=== PATIENT | male | born 1955 | race Caucasian/White ===

== ENCOUNTER 2016-09-27 15:41 | Emergency (ER) | payer BC ==
--- NOTE | 2016-09-27 16:15 | Emergency Department Record ---
History of Present Illness - General Chief complaint: Male Urogenital Problem Stated complaint: BLOOD IN URINE Time Seen by Provider: 09/27/16 15:49 Source: Patient, Family Mode of Arrival: Ambulatory Limitations: No limitations - History of Present Illness Initial comments: 61 yo male presents with hematuria intermittently since September 22. He has a history of prior renal cancer with a L nephrectomy in 2014. He has a history of PAD and takes Aspirin, Plavix and Xarelto. He was seen [facility] and started on Cipro 3 days ago. No retention. No fever. No pain with voiding. He does have mild RUQ pain that comes and goes. Dr Saldaña is his urologist. No nausea, vomiting, or chills. The symptoms had initially improved a a few voids where it returned to clear but today returned to dark blood. MD Complaint: Other Onset/Timin -: Days(s) (5) Radiation: RUQ (mild comes and goes) Severity: Moderate Severity scale (1-10): 4 Quality: Aching, Dull Consistency: Constant Reports: Blood in urine, Urinary retention - Related Data Home Medications Medication Instructions Recorded Confirmed Last Taken Aspirin 81 mg PO Q4-6HR tab 09/24/16 09/27/16 09/27/16 Atorvastatin Calcium 1 tab PO DAILY 90 Days 09/24/16 09/27/16 09/27/16 Clopidogrel Bisulfate [Clopidogrel] 1 tab PO DAILY 90 Days 09/24/16 09/27/1609/08 Rivaroxaban [Xarelto] 1 tab PO DAILY 90 Days 09/24/16 09/27/16 09/27/16 Tamsulosin HCl 1 tab PO DAILY 90 Days 09/24/16 09/27/16 09/27/16 Allergies Allergy/AdvReac Type Severity Reaction Status Date / Time No Known Drug Allergies Allergy Unverified 09/24/16 16:07 Travel Screening - Travel/Exposure Within Last 30 Days Have you traveled within the last 30 days?: No - Travel/Exposure Within Last Year Have you traveled outside the [place] in the last year?: No - Additonal Travel Details Have you been exposed to anyone with a communicable illness?: No Review of Systems Constitutional: Denies: Chills, Fever, Weakness Eyes: Denies: Eye discharge ENT: Denies: Congestion, Throat pain Respiratory: Denies: Cough, Dyspnea, Hemoptysis, Stridor, Wheezes Cardiovascular: Denies: Chest pain, Palpitations, Syncope Endocrine: Denies: Fatigue, Polydipsia, Polyuria Gastrointestinal: Reports: Abdominal pain (mild RUQ, comes and goes). Denies: Diarrhea, Nausea, Vomiting Genitourinary: Reports: Hematuria Musculoskeletal: Denies: Arthralgia, Back pain, Joint swelling, Myalgia Skin: Denies: Bruising, Change in color, Rash Neurological: Denies: Headache, Numbness Psychiatric: Denies: Anxiety Hematological/Lymphatic: Reports: Blood Clots (PAD). Denies: Easy bleeding, Easy bruising, Swollen glands Past Medical History - SOCIAL HISTORY Smoking Status: Current some day smoker Alcohol Use: None Drug Use: None - RESPIRATORY Hx Respiratory Disorders: No - CARDIOVASCULAR Hx Cardio Disorders: Yes Hx Vascular Disease: Yes - NEURO Hx Neuro Disorders: No - GI Hx GI Disorders: No - Hx Genitourinary Disorders: Yes Hx Renal Disease: Yes (Left kidney cancer) - MUSCULOSKELETAL Hx Musculoskeletal Disorders: No - PSYCH Hx Psych Problems: No - HEMATOLOGY/ONCOLOGY Hx Hematology/Oncology Disorders: Yes Hx Anemia: Yes Hx Cancer: Yes (Leukemia and kidney cancer) Hx Chemotherapy: Yes Family Medical History Any Significant Family History?: No Physical Exam - General General Appearance: Alert, Oriented x3, Cooperative, No acute distress Limitations: No limitations - Head Head exam: Normal inspection - Eye Eye exam: Normal appearance - ENT ENT exam: Normal exam Ear exam: Normal external inspection Nasal Exam: Normal inspection Mouth exam: Normal external inspection - Neck Neck exam: Normal inspection - Respiratory Respiratory exam: Normal lung sounds bilaterally. negative: Respiratory distress - Cardiovascular Cardiovascular Exam: Regular rate, Normal rhythm, Normal heart sounds - GI/Abdominal GI/Abdominal exam: Soft. negative: Distended, Guarding, Rebound, Tenderness - Rectal Rectal exam: Deferred - exam: Deferred - Extremities Extremities exam: Normal inspection, Full ROM, Normal capillary refill. negative: Tenderness - Back Back exam: Reports: Normal inspection, Full ROM. Denies: Muscle spasm, Rash noted, Tenderness - Neurological Neurological exam: Alert, Normal gait, Oriented X3 - Psychiatric Psychiatric exam: Normal affect, Normal mood - Skin Skin exam: Dry, Intact, Normal color, Warm Course Vital Signs 09/27/16 15:44 Temperature 98.2 F Pulse Rate 84 Respiratory 18 Rate Blood Pressure 152/93 Pulse Ox 98 - Reevaluation(s) Reevaluation #1: UA, labs and CT ordered Pt has gross hematuria but no retention 09/27/16 16:16 Reevaluation #2: The labs were reviewed Hgb is 14 WBC is 12 UA is Large Blood, no N or LE, No WBC's CR is 1.3 with GFR of 59. 09/27/16 16:38 Reevaluation #3: The CT scan was reviewed No acute process, no stone, no hydro, no acute bladder abnormality Dr Saldaña Paged 09/27/16 16:49 Reevaluation #4: I SW Dr Saldaña He is familiar with the patient The patient underwent full work up with CT's this year and cystoscopy with no signs of cancer He recommended holding his blood thinners and increasing hydration. He is to call the office for follow up 09/27/16 17:04 Medical Decision Making - Lab Data Result diagrams: 09/27/16 16:13 09/27/16 16:13 Disposition Disposition: Discharge Clinical Impression: Hematuria Disposition: Home, Self-Care Condition: (1) Good Instructions: Hematuria (ED) Additional Instructions: Drink plenty of water and stay well hydrated Call Dr Saldaña's office tomorrow to schedule close follow up If you are unable to void, fever, pain or any new concerns go to an ER to be seen Hold today's medications then resume tomorrow if clearing. If not call your doctors tomorrow. Forms: Patient Portal Access Time of Disposition: 17:12
[2016-09-27 16:26] LABS: EOS % 2.5 % (0-6); GRAN % 56.8 % (47-80); HEMATOCRIT 42.2 % (42.0-52.0); LYMPH % 30.7 % (16-45); MEAN CELL VOLUME 98.1 fl (81-97); MEAN CORPUSCULAR HGB CONC 33.2 g/dl (32-36); MEAN PLATELET VOLUME 8.8 fl (7.4-10.4); PLATELET COUNT 248 K/uL (130-400); RED CELL DISTRIBUTION WIDTH 13.8 % (11.5-14.5); URINE APPEARANCE TURBID; URINE BILIRUBIN NEGATIVE (NEGATIVE); URINE BLOOD LARGE (NEGATIVE); URINE COLOR RED; URINE GLUCOSE (UA) NEGATIVE (NEGATIVE); URINE KETONE NEGATIVE (NEGATIVE); URINE LEUKOCYTE ESTERASE NEGATIVE (NEGATIVE); URINE NITRITE NEGATIVE (NEGATIVE); URINE UROBILINOGEN 0.2 E.U./dL (0.20 - 1.00); WHITE BLOOD COUNT W/O DIFF 12.4 K/uL (4.2-12.2)
[2016-09-27 16:27] LABS: MEAN CORPUSCULAR HEMOGLOBIN 32.5 pg (27-33)
[2016-09-27 16:28] LABS: URINE EPITHELIAL CELLS NONE SEEN (FEW); URINE PROTEIN 300 mg/dL (NEGATIVE); URINE WBC NONE SEEN (0-2/hpf)
[2016-09-27 16:34] LABS: ALB/GLOB RATIO 1.5 (1.1-1.8); ALBUMIN 4.6 gm/dL (3.5-5.0); ANION GAP 11.3 (7-16); BILIRUBIN,TOTAL 1.19 mg/dL (0.2-1.3); CARBON DIOXIDE 23.7 mmol/L (22-30); CREATININE 1.3 mg/dL (0.66-1.25); TOTAL PROTEIN 7.7 gm/dL (6.3-8.2)
[2016-09-27 16:36] LABS: INR 1.04; PARTIAL THROMBOPLASTIN TIME 28.5 SECONDS (24.5-39.1); PROTHROMBIN TIME (PATIENT) 11.8 SECONDS (9.5-12.1)
--- NOTE | 2016-09-28 08:21 | CT SCAN REPORT ---
EXAM: CT OF THE ABDOMEN AND PELVIS HISTORY: RIGHT SIDED ABDOMINAL PAIN, HEMATURIA. TECHNIQUE: CT of the abdomen and pelvis was performed without intravenous or oral contrast. Comparison: CT of the chest, abdomen and pelvis 01/28/15. FINDINGS: The lung bases are unremarkable. The liver and spleen are unremarkable. No pancreatic mass or inflammatory change. The bile ducts are not dilated. No calcified gallstones. No adrenal lesion seen. There has been a left nephrectomy. No right renal calculus or right ureteral calculus. There are two low density lesions in the right kidney most likely representing cysts. The one in the superior pole of the right kidney measures 2.1 cm in size and the one in the mid lateral right kidney measures 6 mm in size. The renal parenchyma is not optimally assessed, however , without contrast. There is no aortic aneurysm. No periaortic mass or adenopathy. There are atherosclerotic changes in the abdominal aorta. No mass in the left renal fossa. Postoperative vascular changes are present in the common femoral regions bilaterally. The appendix is unremarkable. No evidence for appendicitis. Arthritic changes are seen in the lower lumbar spine and sacroiliac joints. There are no dilated bowel loops. No free air or free fluid. The prostate is enlarged. There are sclerotic changes in the anterior superior aspect of the proximal right femur unchanged. This could represent avascular necrosis. This is similar to the patient's previous examination. IMPRESSION: 1. NO ACUTE ABDOMINAL OR PELVIC PROCESS IDENTIFIED. NO RENAL OR URETERAL CALCULI ARE SEEN. NO EVIDENCE FOR APPENDICITIS. 2. SURGICAL ABSENCE OF THE LEFT KIDNEY. NO RESIDUAL OR RECURRENT MASS IN THE LEFT FOSSA. 3. RIGHT RENAL CYSTS. 4. PROSTATIC ENLARGEMENT. 5. POSSIBLE AVASCULAR NECROSIS IN THE RIGHT HIP SIMILAR TO THE PREVIOUS STUDY. ARTHRITIC CHANGES IN THE LOWER LUMBAR SPINE AND SACROILIAC JOINTS. JOB NUMBER: [id number] [facility]
== END 2016-09-27 17:21 | disposition home or self-care (01) ==
LOC: ER 15:41 → MEDSURG 16:52 → UNDOADMIN 16:52 → ER 17:21
DX: R31.0 Gross hematuria (principal); R10.11 Right upper quadrant pain; Z85.53 Personal history of malignant neoplasm of renal pelvis
CPT/HCPCS: 74176; 80053; 81001; 85025; 85610; 85730; 99283; 99284

== ENCOUNTER 2017-04-17 12:59 | Emergency (ER) | payer BC ==
[2017-04-17] MEDS: 0.9 % SODIUM CHLORIDE 1,000 ML BAG IV ONE (14:06)
[2017-04-17] MEDS: ONDANSETRON HCL IV 4 MG/2 ML VIAL IV ONE (14:06)
[2017-04-17] MEDS: HYDROMORPHONE HCL 1 MG/ML SYRINGE IVP ONE (14:07)
[2017-04-17 14:08] LABS: URINE APPEARANCE CLEAR; URINE BILIRUBIN NEGATIVE (NEGATIVE); URINE BLOOD TRACE-I (NEGATIVE); URINE COLOR YELLOW; URINE GLUCOSE (UA) NEGATIVE (NEGATIVE); URINE KETONE NEGATIVE (NEGATIVE); URINE LEUKOCYTE ESTERASE NEGATIVE (NEGATIVE); URINE NITRITE NEGATIVE (NEGATIVE); URINE PROTEIN NEGATIVE (NEGATIVE); URINE UROBILINOGEN 0.2 E.U./dL (0.20 - 1.00)
[2017-04-17 14:18] LABS: BLOOD UREA NITROGEN 18 mg/dL (8-23); CREATININE 1.2 mg/dL (0.7-1.2); EST GLOMERULAR FILTRATION RATE > 60 mL/min
[2017-04-17 14:19] LABS: URINE AMORPHOUS SEDIMENT FEW; URINE EPITHELIAL CELLS NONE SEEN (FEW); URINE WBC NONE SEEN (0-2/hpf)
[2017-04-17 14:19] LABS: TOTAL PROTEIN 8.1 g/dL (6.6-8.7)
[2017-04-17 14:21] LABS: GLUCOSE,RANDOM 86 mg/dL (74-109)
[2017-04-17 14:23] LABS: ALT/SGPT 20 U/L (<41)
[2017-04-17 14:24] LABS: ALBUMIN 4.8 g/dL (4.0-5.0); ALKALINE PHOSPHATASE 168 U/L (40-129); AST/SGOT 17 U/L (10.0-50.0); LIPASE 37 U/L (13-60)
[2017-04-17 14:25] LABS: BILIRUBIN,DIRECT < 0.2 mg/dL (0-0.3)
--- NOTE | 2017-04-17 14:44 | Emergency Department Record ---
History of Present Illness - General Chief Complaint: Abdominal Pain Stated Complaint: RT SIDE/ABDOMINAL PAIN Time Seen by Provider: 04/17/17 13:41 Source: Patient Mode of Arrival: Ambulatory Limitations: No limitations - History of Present Illness Initial Comments: pt has had r sided abd pain and flank liban for 2 days which has grown progressively worse. pt has no n/v/c/d. nothin makes pain better or worse. pt had a l nephrectomy dur to renal cell carcinoma. Onset/Timin -: Days(s) Location: R Flank, RUQ, RLQ Severity: Moderate Quality: Burning Consistency: Constant Improves With: Nothing Worsens With: Nothing - Related Data Home Medications Medication Instructions Recorded Confirmed Last Taken Doxycycline Hyclate [Doxycycline] 100 mg PO BID 04/17/17 04/17/17 04/17/17 Previous Rx's Medication Instructions Recorded Hydrocodone/Acetaminophen [[place] 1 each PO QID #7 tablet 04/17/17 5-325 Tablet] Allergies Allergy/AdvReac Type Severity Reaction Status Date / Time No Known Drug Allergies Allergy Verified 04/17/17 13:32 Travel Screening - Travel/Exposure Within Last 30 Days Have you traveled within the last 30 days?: No - Travel/Exposure Within Last Year Have you traveled outside the [place] in the last year?: No - Additonal Travel Details Have you been exposed to anyone with a communicable illness?: No - Travel Symptoms Symptom Screening: None Review of Systems Reviewed: No additional complaints except as noted below Constitutional: Reports: As per HPI. Denies: Chills, Fever, Malaise, Night sweats, Weakness, Weight change Eyes: Reports: As per HPI. Denies: Eye discharge, Eye pain, Photophobia, Vision change ENT: Reports: As per HPI. Denies: Congestion, Dental pain, Ear pain, Epistaxis , Hearing loss, Throat pain Respiratory: Reports: As per HPI. Denies: Cough, Dyspnea, Hemoptysis, Stridor, Wheezes Cardiovascular: Reports: As per HPI. Denies: Arrhythmia, Chest pain, Dyspnea on exertion, Edema, Murmurs, Orthopnea, Palpitations, Paroxysmal nocturnal dyspnea, Rheumatic Fever, Syncope Endocrine: Reports: As per HPI. Denies: Fatigue, Heat or cold intolerance, Polydipsia, Polyuria Gastrointestinal: Reports: As per HPI, Abdominal pain. Denies: Constipation, Diarrhea, Hematemesis, Hematochezia, Melena, Nausea, Vomiting Genitourinary: Reports: As per HPI. Denies: Dysuria, Frequency, Hematuria, Incontinence, Retention, Testicular pain, Testicular mass, Urgency Musculoskeletal: Reports: As per HPI. Denies: Arthralgia, Back pain, Gout, Joint swelling, Myalgia, Neck pain Skin: Reports: As per HPI. Denies: Bruising, Change in color, Change in hair/ nails, Lesions, Pruritus, Rash Neurological: Reports: As per HPI. Denies: Abnormal gait, Confusion, Headache, Numbness, Paresthesias, Seizure, Tingling, Tremors, Vertigo, Weakness Psychiatric: Reports: As per HPI. Denies: Anxiety, Auditory hallucinations, Depression, Homicidal thoughts, Suicidal thoughts, Visual hallucinations Hematological/Lymphatic: Reports: As per HPI. Denies: Anemia, Blood Clots, Easy bleeding, Easy bruising, Swollen glands Past Medical History - SOCIAL HISTORY Smoking Status: Current some day smoker Alcohol Use: None Drug Use: None - RESPIRATORY Hx Respiratory Disorders: No - CARDIOVASCULAR Hx Cardio Disorders: Yes Hx Vascular Disease: Yes - NEURO Hx Neuro Disorders: No - GI Hx GI Disorders: No - Hx Genitourinary Disorders: Yes Hx Renal Disease: Yes (Left kidney cancer) - MUSCULOSKELETAL Hx Musculoskeletal Disorders: No - PSYCH Hx Psych Problems: No - HEMATOLOGY/ONCOLOGY Hx Hematology/Oncology Disorders: Yes Hx Anemia: Yes Hx Cancer: Yes (Leukemia and kidney cancer) Hx Chemotherapy: Yes Family Medical History Any Significant Family History?: Yes Physical Exam - General General Appearance: Alert, Oriented x3, Cooperative, Mild distress - Head Head exam: Normal inspection - Eye Eye exam: Normal appearance, PERRL, EOMI Pupils: Normal accommodation - ENT ENT exam: Normal exam, Mucous membranes moist, Normal external ear exam, Normal orophraynx, TM's normal bilaterally Ear exam: Normal external inspection. negative: External canal tenderness Nasal Exam: Normal inspection. negative: Discharge, Sinus tenderness Mouth exam: Normal external inspection, Tongue normal Teeth exam: Normal inspection. negative: Dental caries Throat exam: Normal inspection. negative: Tonsillar erythema, Tonsillar exudate - Neck Neck exam: Normal inspection, Full ROM. negative: Tenderness - Respiratory Respiratory exam: Normal lung sounds bilaterally. negative: Respiratory distress - Cardiovascular Cardiovascular Exam: Regular rate, Normal rhythm, Normal heart sounds - GI/Abdominal GI/Abdominal exam: Soft, Normal bowel sounds, Tenderness - Rectal Rectal exam: Deferred - exam: Deferred - Extremities Extremities exam: Normal inspection, Full ROM, Normal capillary refill. negative: Tenderness - Back Back exam: Reports: Normal inspection, CVA tenderness (R), Full ROM. Denies: Muscle spasm, Rash noted, Tenderness - Neurological Neurological exam: Alert, Normal gait, Oriented X3, Reflexes normal - Psychiatric Psychiatric exam: Normal affect, Normal mood - Skin Skin exam: Dry, Intact, Normal color, Warm Medical Decision Making - Lab Data Result diagrams: 04/17/17 13:45 04/17/17 13:45 Lab Results 04/17/17 04/17/17 Range/Units 13:45 14:00 Sodium 141 (136-145) mmol/L Potassium 4.3 (3.4-4.5) mmol/L Chloride 101 (98-107) mmol/L Carbon Dioxide 24.0 (22-29) mmol/L Anion Gap 16.0 (7-16) BUN 18 (8-23) mg/dL Creatinine 1.2 (0.7-1.2) mg/dL Estimated GFR > 60 mL/min Random Glucose 86 (74-109) mg/dL Calcium 9.5 (8.8-10.2) mg/dL Total Bilirubin 0.70 (0.2-1.0) mg/dL Direct Bilirubin < 0.2 (0-0.3) mg/dL AST 17 (10.0-50.0) U/L ALT 20 (<41) U/L Alkaline Phosphatase 168 H (40-129) U/L Total Protein 8.1 (6.6-8.7) g/dL Albumin 4.8 (4.0-5.0) g/dL Lipase 37 (13-60) U/L Urine Color Yellow Urine Appearance Clear Urine pH 6.0 (5.0-8.0) Ur Specific [place] 1.025 (1.002-1.030) Urine Protein Negative (NEGATIVE) Urine Glucose (UA) Negative (NEGATIVE) Urine Ketones Negative (NEGATIVE) Urine Blood Trace-i (NEGATIVE) Urine Nitrite Negative (NEGATIVE) Urine Bilirubin Negative (NEGATIVE) Urine Urobilinogen 0.2 (0.20 - 1.00) E.U./dL Ur Leukocyte Esterase Negative (NEGATIVE) Urine RBC 7 - 10 (NONE SEEN) Urine WBC None seen (0-2/hpf) Ur Epithelial Cells None seen (FEW) Amorphous Sediment Few Disposition Disposition: Discharge Clinical Impression: Abdominal pain Qualifiers: Abdominal location: right upper quadrant Qualified Code(s): R10.11 - Right upper quadrant pain Disposition: Home, Self-Care Condition: (1) Good Instructions: Abdominal Pain (ED) Additional Instructions: follow up with family doctor. return sooner if worse. Prescriptions: Hydrocodone/Acetaminophen [[place] 5-325 Tablet] 1 each PO QID #7 tablet Forms: Patient Portal Access Quality - Quality Measures Quality Measures: N/A - Blood Pressure Screening Does Patient Have Any of the Following: No Blood Pressure Classification: Pre-Hypertensive BP Reading Systolic Measurement: 150 Diastolic Measurement: 85 Screening for High Blood Pressure: < Pre-Hypertensive BP, F/U Documented > [ [id number]] Pre-Hypertensive Follow-up Interventions: Follow-up with rescreen every year.
[2017-04-17 14:59] LABS: HEMATOCRIT 49.6 % (42.0-52.0); HEMOGLOBIN 16.4 gm/dl (14.0-18.0); MEAN CELL VOLUME 96.9 fl (81-97); MEAN CORPUSCULAR HGB CONC 33.1 g/dl (32-36); MEAN PLATELET VOLUME 8.6 fl (7.4-10.4); PLATELET COUNT 292 K/uL (130-400); RED BLOOD COUNT 5.12 M/uL (4.40-5.70); RED CELL DISTRIBUTION WIDTH 13.9 % (11.5-14.5); WHITE BLOOD COUNT W/O DIFF 13.3 K/uL (4.2-12.2)
[2017-04-17 15:00] LABS: PLATELET ESTIMATE NORMAL (NORMAL)
--- NOTE | 2017-04-18 13:51 | CT SCAN REPORT ---
EXAM: CT OF THE ABDOMEN AND PELVIS WITHOUT CONTRAST HISTORY: RIGHT FLANK PAIN FOR TWO DAYS. PRIOR LEFT NEPHRECTOMY FOR MALIGNANCY. TECHNIQUE: Axial CT scan of the abdomen and pelvis was performed without oral or IV contrast. Comparison: CT of the abdomen and pelvis 09/27/16. FINDINGS: The patient is again seen to be postop left nephrectomy. No recurrent soft tissue mass identified in the left renal fossa. No intrarenal calculi or hydronephrosis identified on the right. No hydroureter is seen as well with no definite right ureteral calculus evident and no bladder calculus evident. The prostate again appears enlarged, measuring about 5.9 cm in transverse x 5.1 cm in AP diameter and extends well up into the floor of the bladder. Correlation with serum PSA and physical exam suggested. Two low attenuation masses are again seen in the right kidney appearing unchanged from before where the upper pole low attenuation mass again measuring about 2.2 cm in size and the smaller exophytic low attenuation mass arising from the mid portion of the right kidney again only about 6.5 mm in size. These are incompletely evaluated without IV contrast although presumably represent cysts. Evaluation of the bowel and viscera is quite limited without oral or IV contrast. Given this limitation, no definite hepatic, splenic, adrenal, or pancreatic mass identified. There are probably bilateral femoral arterial grafts partially seen in the lower most scans also present previously. The appendix is visualized and appears negative. No free intraperitoneal air or free intraperitoneal fluid evident. Degenerative disk disease at the L4-L5 interspace. Associated foraminal stenosis at this level. Note is made of sclerosis in the right femoral head similar to before. This may be related to avascular necrosis. IMPRESSION: 1. POSTOP LEFT NEPHRECTOMY. 2. NO URINARY TRACT CALCULI OR HYDRONEPHROSIS EVIDENT ON THE RIGHT. 3. ENLARGED PROSTATE. 4. A COUPLE LOW ATTENUATION MASSES RIGHT KIDNEY UNCHANGED FROM BEFORE, PRESUMABLY CYSTS. 5. DEGENERATIVE CHANGE IN THE SPINE. CHANGES IN THE RIGHT FEMORAL HEAD BEFORE WHICH MAY REPRESENT AVASCULAR NECROSIS. JOB NUMBER: [id number] [facility]
--- NOTE | 2017-04-18 15:09 | ULTRASOUND REPORT ---
EXAM: ABDOMEN ULTRASOUND HISTORY: RIGHT UPPER QUADRANT ABDOMINAL PAIN FOR THE PAST TWO DAYS. PREVIOUS LEFT NEPHRECTOMY. TECHNIQUE: Sonographic evaluation of the abdomen was performed in the standard fashion. Comparison: Previous CT scan of the abdomen and pelvis dated 04/17/17. FINDINGS: The liver demonstrates increased echogenicity consistent with fatty infiltration. There are no focal hepatic abnormalities. The gallbladder is unremarkable with no stones, wall thickening, or pericholecystic fluid. The common bile duct is normal measuring 5 mm. The pancreas is faintly visualized and appears normal. The proximal aorta is partially obscured by intraabdominal gas. The distal aorta is normal in caliber. The spleen and IVC are normal. A 2.4 cm cyst is present at the upper pole of the right kidney. The right kidney measures 12.6 cm in length. There is no hydronephrosis or visible calculus. The left kidney is surgically absent. The renal fossa appears normal. There is no ascites. IMPRESSION: 1. NO ACUTE INTRAABDOMINAL PATHOLOGY. THE GALLBLADDER AND BILIARY TREE ARE NORMAL. 2. STATUS POST LEFT NEPHRECTOMY. 3. 2.4 CM RIGHT RENAL CYST. J[facility]BER: [id number] [facility]
== END 2017-04-17 18:01 | disposition home or self-care (01) ==
LOC: ER 12:59
DX: R10.11 Right upper quadrant pain (principal); Z85.528 Personal history of other malignant neoplasm of kidney
CPT/HCPCS: 99284 ×2; 96374; 96375; 83690; 80076; 80048; 81001; 85027; 76700; 74176; J2405; J1170; J7030

== ENCOUNTER 2017-09-15 12:23 | Emergency (ER) | payer BC ==
--- NOTE | 2017-09-15 12:33 | Emergency Department Record ---
History of Present Illness - General Chief complaint: Male Urogenital Problem Stated complaint: BLOOD IN URINE Time Seen by Provider: 09/15/17 12:27 Source: Patient, RN notes reviewed - History of Present Illness Initial comments: patient had a turp done saturday and has a rivers and this am he noticed blood in his urine and no abdominal pain. No sign of urinary obstriuction. He is on xarelto for DVT's and PAD with stents in both legs and they were 2 years ago and he is also on aspirin and told to stop aspirin and accidentally gave him aspirin today or yesterday. He is also on plavix. Dr. Saldaña is his urologist. The talked to the production service manager and he sent him to the ED. patient also complains of constipation and using colace twice a day. - Related Data Home Medications Medication Instructions Recorded Confirmed Last Taken Ciprofloxacin HCl [Cipro] 500 mg PO Q12HR 09/15/17 09/15/17 09/15/17 Docusate Sodium [Colace] 100 mg PO DAILY 09/15/17 09/15/17 09/15/17 Previous Rx's Medication Instructions Recorded Hydrocodone/Acetaminophen [[place] 1 each PO QID #7 tablet 04/17/17 5-325 Tablet] Allergies Allergy/AdvReac Type Severity Reaction Status Date / Time No Known Drug Allergies Allergy Verified 09/15/17 12:52 Review of Systems Reviewed: No additional complaints except as noted below Constitutional: Reports: As per HPI. Denies: Chills, Fever, Malaise, Night sweats, Weakness, Weight change Eyes: Reports: As per HPI. Denies: Eye discharge, Eye pain, Photophobia, Vision change ENT: Reports: As per HPI. Denies: Congestion, Dental pain, Ear pain, Epistaxis , Hearing loss, Throat pain Respiratory: Reports: As per HPI. Denies: Cough, Dyspnea, Hemoptysis, Stridor, Wheezes Cardiovascular: Reports: As per HPI. Denies: Arrhythmia, Chest pain, Dyspnea on exertion, Edema, Murmurs, Orthopnea, Palpitations, Paroxysmal nocturnal dyspnea, Rheumatic Fever, Syncope Endocrine: Reports: As per HPI. Denies: Fatigue, Heat or cold intolerance, Polydipsia, Polyuria Gastrointestinal: Reports: As per HPI. Denies: Abdominal pain, Constipation, Diarrhea, Hematemesis, Hematochezia, Melena, Nausea, Vomiting Genitourinary: Reports: As per HPI, Hematuria. Denies: Dysuria, Frequency, Incontinence, Retention, Testicular pain, Testicular mass, Urgency Musculoskeletal: Reports: As per HPI. Denies: Arthralgia, Back pain, Gout, Joint swelling, Myalgia, Neck pain Skin: Reports: As per HPI. Denies: Bruising, Change in color, Change in hair/ nails, Lesions, Pruritus, Rash Neurological: Reports: As per HPI. Denies: Abnormal gait, Confusion, Headache, Numbness, Paresthesias, Seizure, Tingling, Tremors, Vertigo, Weakness Psychiatric: Reports: As per HPI. Denies: Anxiety, Auditory hallucinations, Depression, Homicidal thoughts, Suicidal thoughts, Visual hallucinations Hematological/Lymphatic: Reports: As per HPI. Denies: Anemia, Blood Clots, Easy bleeding, Easy bruising, Swollen glands Past Medical History - SOCIAL HISTORY Smoking Status: Current some day smoker Drug Use: None - RESPIRATORY Hx Respiratory Disorders: No - CARDIOVASCULAR Hx Cardio Disorders: Yes Hx Vascular Disease: Yes - NEURO Hx Neuro Disorders: No - GI Hx GI Disorders: No - Hx Genitourinary Disorders: Yes Hx Renal Disease: Yes (Left kidney cancer) - MUSCULOSKELETAL Hx Musculoskeletal Disorders: No - PSYCH Hx Psych Problems: No - HEMATOLOGY/ONCOLOGY Hx Hematology/Oncology Disorders: Yes Hx Anemia: Yes Hx Cancer: Yes (Leukemia and kidney cancer) Hx Chemotherapy: Yes Physical Exam - General General Appearance: Alert, Oriented x3, Cooperative, No acute distress - Head Head exam: Normal inspection - Eye Eye exam: Normal appearance, PERRL Pupils: Normal accommodation - ENT ENT exam: Normal exam, Mucous membranes moist, Normal external ear exam, Normal orophraynx, TM's normal bilaterally Ear exam: Normal external inspection. negative: External canal tenderness Nasal Exam: Normal inspection. negative: Discharge, Sinus tenderness Mouth exam: Normal external inspection, Tongue normal Teeth exam: Normal inspection. negative: Dental caries Throat exam: Normal inspection. negative: Tonsillar erythema, Tonsillar exudate - Neck Neck exam: Normal inspection, Full ROM. negative: Tenderness - Respiratory Respiratory exam: Normal lung sounds bilaterally. negative: Respiratory distress - Cardiovascular Cardiovascular Exam: Regular rate, Normal rhythm, Normal heart sounds - GI/Abdominal GI/Abdominal exam: Soft, Normal bowel sounds. negative: Tenderness - Rectal Rectal exam: Deferred - exam: Deferred - Extremities Extremities exam: Normal inspection, Full ROM, Normal capillary refill. negative: Tenderness - Back Back exam: Reports: Normal inspection, Full ROM. Denies: Muscle spasm, Rash noted, Tenderness - Neurological Neurological exam: Alert, Normal gait, Oriented X3, Reflexes normal - Psychiatric Psychiatric exam: Normal affect, Normal mood - Skin Skin exam: Dry, Intact, Normal color, Warm Course - Reevaluation(s) Reevaluation #1: Dr. Vyas production service manager and paged him [phone] option 2. 09/15/17 13:20 Medical Decision Making - Data Complexity MDM Data: Labs Ordered and/or Reviewed (hg 16.1) - Lab Data Result diagrams: 09/15/17 12:48 09/15/17 12:48 Disposition Clinical Impression: Hematuria Qualifiers: Hematuria type: gross Qualified Code(s): R31.0 - Gross hematuria Post surgical complication Qualifiers: Surgical complication system/body Area: genitourinary Surgical complication type: hemorrhage Procedure type: genitourinary Qualified Code(s): N99.820 - Postprocedural hemorrhage of a genitourinary system organ or structure following a genitourinary system procedure Disposition: Home, Self-Care Condition: (1) Good Instructions: Hematuria (ED) Additional Instructions: drink lots of fluid stop asapirin and plavix and xarelto for 2 days than only restart xarelto and plavix call Dr. Saldaña's office timorrow for a urgent follow up with gross hematuria Use milk of magnesia two tablespoons every 8 hours Forms: Patient Portal Access Time of Disposition: 13:23 Quality - Quality Measures Quality Measures: N/A - Blood Pressure Screening Does Patient Have Any of the Following: No Blood Pressure Classification: Hypertensive Reading Systolic Measurement: 150 Diastolic Measurement: 78 Screening for High Blood Pressure: < First Hypertensive BP, F/U Documented > [ G8950] First Hypertensive Follow-up Interventions: Referral to alternative/primary care provider.
[2017-09-15 12:52] LABS: BASO % 0.7 % (0-6); EOS % 1.5 % (0-6); GRAN % 68.7 % (47-80); HEMATOCRIT 48.9 % (42.0-52.0); HEMOGLOBIN 16.1 gm/dl (14.0-18.0); LYMPH % 19.1 % (16-45); MEAN CELL VOLUME 99.2 fl (81-97); MEAN CORPUSCULAR HEMOGLOBIN 32.7 pg (27-33); MEAN CORPUSCULAR HGB CONC 32.9 g/dl (32-36); MEAN PLATELET VOLUME 8.8 fl (7.4-10.4); PLATELET COUNT 204 K/uL (130-400); RED BLOOD COUNT 4.93 M/uL (4.40-5.70); WHITE BLOOD COUNT W/O DIFF 12.2 K/uL (4.2-12.2)
[2017-09-15 12:56] LABS: URINE APPEARANCE CLOUDY; URINE BILIRUBIN SMALL (NEGATIVE); URINE COLOR RED; URINE KETONE 15 mg/dL (NEGATIVE); URINE LEUKOCYTE ESTERASE MODERATE (NEGATIVE)
[2017-09-15 12:58] LABS: URINE BLOOD LARGE (NEGATIVE); URINE NITRITE POSITIVE (NEGATIVE); URINE PROTEIN 300 mg/dL (NEGATIVE)
[2017-09-15 12:59] LABS: URINE BACTERIA NONE SEEN; URINE EPITHELIAL CELLS NONE SEEN (FEW); URINE WBC 0 - 2 (0-2/hpf)
[2017-09-15 13:01] LABS: BLOOD UREA NITROGEN 16 mg/dL (8-23); CREATININE 1.2 mg/dL (0.7-1.2); EST GLOMERULAR FILTRATION RATE > 60 mL/min
[2017-09-15 13:04] LABS: GLUCOSE,RANDOM 105 mg/dL (74-109)
== END 2017-09-15 13:35 | disposition home or self-care (01) ==
LOC: ER 12:23
DX: N99.820 Postprocedural hemorrhage of a genitourinary system organ or structure following a genitourinary system procedure (principal); R21 Rash and other nonspecific skin eruption; K59.00 Constipation, unspecified; I82.409 Acute embolism and thrombosis of unspecified deep veins of unspecified lower extremity; Z79.01 Long term (current) use of anticoagulants; Z85.528 Personal history of other malignant neoplasm of kidney; F17.290 Nicotine dependence, other tobacco product, uncomplicated
CPT/HCPCS: 80048; 81001; 85025; 85730; 99283; 99284

== ENCOUNTER 2017-09-16 12:29 | Emergency (ER) | payer BC ==
--- NOTE | 2017-09-16 12:52 | Emergency Department Record ---
History of Present Illness - General Chief complaint: Male Urogenital Problem Stated complaint: PLUGGED CATHETER Time Seen by Provider: 09/16/17 12:45 Source: Patient, Family Mode of Arrival: Ambulatory Limitations: No limitations - History of Present Illness Initial comments: 61 yo male presents after a TURP on Saturday. He has a rivers catheter in place. He was at the urologist just prior to arrival. He now states the rivers is not draining. He was in Dr Saldaña's office today for two house with flushing the rivers. He has pain, spasm, and is unsure if it is draining. He had a larger catheter put in by [facility] nurse. He left the office at 11. By 11:30 it stopped draining, he developed pain and spasm. He is on aspirin and Xarelto. Complaint: Other (Rivers not functioning) Onset/Timin -: Days(s) Severity scale (1-10): 10 Consistency: Intermittent Improves with: None Worsens with: None Indwelling catheter Reports: Blood in urine, Dysuria - Related Data Previous Rx's Medication Instructions Recorded Hydrocodone/Acetaminophen [[place] 1 each PO QID #7 tablet 04/17/17 5-325 Tablet] Allergies Allergy/AdvReac Type Severity Reaction Status Date / Time No Known Drug Allergies Allergy Verified 09/16/17 12:45 Travel Screening - Travel/Exposure Within Last 30 Days Have you traveled within the last 30 days?: No Review of Systems Constitutional: Denies: Chills, Fever, Malaise, Weakness Eyes: Denies: Eye discharge ENT: Denies: Congestion, Throat pain Respiratory: Denies: Cough Cardiovascular: Denies: Chest pain, Syncope Endocrine: Denies: Fatigue Gastrointestinal: Reports: As per HPI, Abdominal pain. Denies: Diarrhea Genitourinary: Reports: Dysuria, Hematuria Musculoskeletal: Denies: Arthralgia, Back pain Skin: Denies: Bruising, Change in color Neurological: Denies: Numbness, Weakness Psychiatric: Denies: Anxiety Hematological/Lymphatic: Reports: Easy bleeding. Denies: Easy bruising Past Medical History - SOCIAL HISTORY Smoking Status: Current some day smoker Alcohol Use: None Drug Use: None - RESPIRATORY Hx Respiratory Disorders: No - CARDIOVASCULAR Hx Cardio Disorders: Yes Hx Vascular Disease: Yes - NEURO Hx Neuro Disorders: No - GI Hx GI Disorders: No - Hx Genitourinary Disorders: Yes Hx Renal Disease: Yes (Left kidney cancer) - ENDOCRINE Hx Endocrine Disorders: No - MUSCULOSKELETAL Hx Musculoskeletal Disorders: No - PSYCH Hx Psych Problems: No - HEMATOLOGY/ONCOLOGY Hx Hematology/Oncology Disorders: Yes Hx Anemia: Yes Hx Cancer: Yes (Leukemia and kidney cancer) Hx Chemotherapy: Yes Family Medical History Any Significant Family History?: No Physical Exam - General General Appearance: Alert, Oriented x3, Cooperative, No acute distress Limitations: No limitations - Head Head exam: Atraumatic, Normal inspection - Eye Eye exam: Normal appearance. negative: Conjunctival injection, Scleral icterus - ENT ENT exam: Normal exam Ear exam: Normal external inspection Nasal Exam: Normal inspection Mouth exam: Normal external inspection - Neck Neck exam: Normal inspection, Full ROM. negative: Tenderness - Respiratory Respiratory exam: Normal lung sounds bilaterally. negative: Respiratory distress - Cardiovascular Cardiovascular Exam: Regular rate, Normal rhythm, Normal heart sounds - GI/Abdominal GI/Abdominal exam: Soft, Tenderness (suprapubic) - exam: Circumcision, Other (rivers inplace, bloody drainage) - Extremities Extremities exam: Normal inspection - Back Back exam: Reports: Normal inspection - Neurological Neurological exam: Alert, Oriented X3 - Psychiatric Psychiatric exam: Normal affect, Normal mood - Skin Skin exam: Dry, Intact, Normal color, Warm Course - Reevaluation(s) Reevaluation #1: 09/16/17 13:42 The CBC and BMP reviewed Dr Saldaña paged The rivers still with large clots 24 Fr. 400ml on bladder scan 09/16/17 13:40 Dr Saldaña was paged through [facility] 09/16/17 13:58 No call back [facility] was recontacted Dr Mott of the ED accepts the patient for transfer to the [facility] ED Medical Decision Making - Lab Data Result diagrams: 09/16/17 13:01 09/16/17 12:55 Disposition Disposition: Transfer Clinical Impression: Urinary retention Hematuria Qualifiers: Hematuria type: unspecified type Qualified Code(s): R31.9 - Hematuria, unspecified Disposition: Home, Self-Care Transfer To: [facility] Reason For Transfer: Urinary retention with hematuria Accepting Physician: [facility] Time Discussed w/Accepting Physician: 13:48 Condition: (1) Good Instructions: Urinary Retention in Men (ED) Forms: Patient Portal Access Time of Disposition: 13:48 Quality - Quality Measures Quality Measures: N/A - Blood Pressure Screening Does Patient Have Any of the Following: No Blood Pressure Classification: Pre-Hypertensive BP Reading Systolic Measurement: 124 Diastolic Measurement: 81 Screening for High Blood Pressure: < Pre-Hypertensive BP, F/U Documented > [ G8950] Pre-Hypertensive Follow-up Interventions: Referral to alternative/primary care provider.
[2017-09-16] MEDS ORDERED: 0.9 % SODIUM CHLORIDE 1000ML 1,000 ML IV ONE (12:53)
[2017-09-16] MEDS ORDERED: ONDANSETRON HCL IV 4 MG/2 ML VIAL IVP ONE (12:55)
[2017-09-16] MEDS ORDERED: LORAZEPAM 2 MG/ML VIAL IV ONE (13:02)
[2017-09-16] MEDS ORDERED: MORPHINE SULFATE 4MG/ML PREFILLED SYRINGE IVP ONE ×2 (13:02→13:46)
[2017-09-16 13:17] LABS: BASO % 0.7 % (0-6); EOS % 1.4 % (0-6); GRAN % 70.4 % (47-80); HEMATOCRIT 44.7 % (42.0-52.0); HEMOGLOBIN 15.4 gm/dl (14.0-18.0); LYMPH % 19.9 % (16-45); MEAN CELL VOLUME 96.3 fl (81-97); MEAN CORPUSCULAR HEMOGLOBIN 33.2 pg (27-33); MEAN CORPUSCULAR HGB CONC 34.5 g/dl (32-36); MONO % 7.6 % (0-9); PLATELET COUNT 231 K/uL (130-400); RED BLOOD COUNT 4.64 M/uL (4.40-5.70); RED CELL DISTRIBUTION WIDTH 13.8 % (11.5-14.5); WHITE BLOOD COUNT W/O DIFF 11.8 K/uL (4.2-12.2)
[2017-09-16 13:28] LABS: PARTIAL THROMBOPLASTIN TIME 26.9 SECONDS (24.5-39.1); PROTHROMBIN TIME (PATIENT) 10.7 SECONDS (9.5-12.1)
[2017-09-16 13:30] LABS: BLOOD UREA NITROGEN 16 mg/dL (8-23); CREATININE 1.2 mg/dL (0.7-1.2); EST GLOMERULAR FILTRATION RATE > 60 mL/min
[2017-09-16 13:33] LABS: GLUCOSE,RANDOM 179 mg/dL (74-109)
== END 2017-09-16 14:20 | disposition home or self-care (01) ==
LOC: ER 12:29
DX: R33.8 Other retention of urine (principal); R31.0 Gross hematuria; F17.290 Nicotine dependence, other tobacco product, uncomplicated; Z79.01 Long term (current) use of anticoagulants; Z85.528 Personal history of other malignant neoplasm of kidney; Z98.890 Other specified postprocedural states
CPT/HCPCS: 80048; 85025; 85610; 85730; 96374; 96375; 96376; 99285; J2274; J2405; J7030